=== PATIENT | female | born 1945 | race Caucasian/White ===

== ENCOUNTER → 2017-12-28 | Outpatient (CLI) | payer OTHER | LOC: RAD 10:31 | DX: R91.8 Other nonspecific abnormal finding of lung field (principal); J90 Pleural effusion, not elsewhere classified; R06.00 Dyspnea, unspecified ==

== ENCOUNTER → 2018-01-01 | Outpatient (CLI) | payer OTHER ==
--- NOTE | ~2018-01-01 | 2DMMODE ---
[facility] [place] [place] [address] 2 D/M-MODE ECHOCARDIOGRAM Name: ALICE SAAB Room #: REG CL [facility]#: [id number] Admission: 01/01/18 Attend Phys: Edgar Patel Discharge: Date of : 45 Date of Service: 01/01/18 1457 Report #: [id number] THIS REPORT FOR: //name// APPROVED REPORT Study performed: 01/01/2018 14:13:23 EXAM: Comprehensive 2D, Doppler, and color-flow Echocardiogram Patient Location: Out-Patient Status: routine BSA: 1.50 HR: 70 bpm BP: 145/77 mmHg Rhythm: NSR Other Information Study Quality: Good Indications Pulmonary hypertension. 2D Dimensions RVDd: 35.02 mm LVEF(%): 60.54 (>50%) IVSd: 7.64 (7-11mm) LVOT Diam: 17.73 (18-24mm) LVDd: 41.52 mm PWd: 7.03 (7-11mm) Ascending Ao: 37.33 (22-36mm) LVDs: 28.24 (25-40mm) Aortic Root: 33.60 mm Negro's LVEF: 60.54 % Volumes Left Atrial Volume (Systole) Single Plane 4CH: 34.88 mL Single Plane 2CH: 32.05 mL LA ESV Index: 24.00 mL/m2 Aortic Valve AoV Peak Rogelio.: 1.84 m/s AO Peak Gr.: 13.54 mmHg LVOT Max P.58 mmHg LVOT Max V: 1.46 m/s HILLARY Vmax: 1.97 cm2 AI Vmax: 4.84 m/s AI [place]: 3.29 m/s2 AI PHT: 427.61 ms [facility] [place] [address] [place] [address] 2 D/M-MODE ECHOCARDIOGRAM Name: ALICE SAAB Room #: REG [facility].#: [id number] Admission: 01/01/18 Attend Phys: Edgar Patel Discharge: Date of : 45 Date of Service: 01/01/18 1457 Report #: [id number] Mitral Valve E/A Ratio: 1.2 MV Decel. Time: 183.34 ms MV E Max Rogelio.: 1.01 m/s MV A Rogelio.: 0.82 m/s MV PHT: 53.17 ms IVRT: 83.04 ms Pulmonary Valve PV Peak Rogelio.: 1.06 m/s PV Peak Gr.: 4.47 mmHg Pulmonary Vein P Vein S: 0.58 m/s P Vein D: 0.63 m/s P Vein S/D Ratio: 0.92 Tricuspid Valve TR Peak Rogelio.: 3.02 m/s RAP Estimate: 10.00 mmHg TR Peak Gr.: 36.41 mmHg PA Pressure: 46.00 mmHg Left Ventricle The left ventricle is normal size. There is normal LV segmental wall motion. There is normal left ventricular wall thickness. Left ventricular systolic function is normal. LVEF is 55%. Right Ventricle The right ventricle is normal size. The right ventricular systolic function is normal. Atria The left atrium size is normal. The right atrium size is normal. Aortic Valve The Aortic valve is mildly sclerotic. Mild to moderate aortic regurgitation. There is no aortic valvular stenosis. Mitral Valve The mitral valve is normal in structure. Mild mitral regurgitation. Tricuspid Valve The tricuspid valve is normal in structure. Mild to moderate tricuspid regurgitation. Estimated PAP is 45mmHg. [facility] [address] [place] [address] 2 D/M-MODE ECHOCARDIOGRAM Name: ALICE SAAB Room #: REG [id number] Admission: 01/01/18 Attend Phys: Edgar Patel Discharge: Date of : 45 Date of Service: 01/01/18 1457 Report #: [id number] Pulmonic Valve The pulmonary valve is normal in structure. Mild pulmonic regurgitation. Great Vessels The aortic root is normal in size. The ascending aorta meausres at the upper limts of normal. IVC is borderline dilated and collapses <50% with inspiration. Pericardium There is no pericardial effusion. <Conclusion> The left ventricle is normal size. There is normal left ventricular wall thickness. Left ventricular systolic function is normal. The right ventricle is normal size. The left atrium size is normal. Mild to moderate aortic regurgitation. Mild mitral regurgitation. Mild to moderate tricuspid regurgitation. Estimated PAP is 45mmHg. There is no pericardial effusion. <ELECTRONICALLY SIGNED> By: Freddy Boudreaux MD 01/01/18 1457 1457 1457 Freddy Boudreaux MD /INF
== END ==
LOC: CV 13:52
DX: I08.3 Combined rheumatic disorders of mitral, aortic and tricuspid valves (principal); J44.9 Chronic obstructive pulmonary disease, unspecified

== ENCOUNTER → 2018-01-02 | Outpatient (CLI) | payer OTHER ==
[2018-01-02 12:45] LABS: HEMOGLOBIN 12.4 gm/dL (12.0-15.0); MCH 31.3 pg (26.0-34.0); MCHC 33.6 g/dL (28.0-37.0); MCV 93.1 fL (80.0-100.0); RBC 3.97 mil/uL (4.20-5.00); RDW 14.1 % (10.5-14.5); WBC 2.8 thou/uL (4.0-11.0)
[2018-01-02 12:55] LABS: CALCIUM 9.2 mg/dL (8.5-10.1); POTASSIUM 4.5 mmol/L (3.5-5.1)
[2018-01-02 13:05] LABS: INR 1.1; PROTIME 11.4 Seconds (9.3-11.4)
[2018-01-02 15:10] LABS: CLARITY CLEAR; COLOR YELLOW; TOTAL VOLUME 60 mL
[2018-01-02 15:11] LABS: BF NUCLEATED CELLS 592; BF RBC 411; SOURCE CHEST FLUID
[2018-01-02 15:20] LABS: BF MACROPHAGE 34; BF NEUTROPHILS 3
[2018-01-03 12:10] LABS: BODY FLUID ALBUMIN 2.2 g/dL (()); BODY FLUID AMYLASE 62 U/L (()); BODY FLUID GLUCOSE 97 mg/dL (()); BODY FLUID LDH 94 IU/L (()); BODY FLUID PROTEIN 3.3 g/dL (())
[2018-01-03 14:50] LABS: SOURCE CHEST
== END | disposition home or self-care (01) ==
LOC: SPEC 06:43
PROVIDERS: Internal Medicine Pulmonary Disease
DX: J90 Pleural effusion, not elsewhere classified (principal); R06.02 Shortness of breath

== ENCOUNTER → 2018-02-01 | Outpatient (CLI) | payer OTHER | LOC: RAD 09:14 | DX: J90 Pleural effusion, not elsewhere classified (principal); J98.11 Atelectasis; J98.4 Other disorders of lung ==

== ENCOUNTER → 2018-02-15 | Outpatient (CLI) | payer OTHER ==
--- NOTE | ~2018-02-15 | PATH ---
[facility] [address] [place] [address] PATHOLOGY RPT PROCEDURE Name: ALICE SAAB Room #: REG [facility].#: [id number] Admission: 02/15/18 Date of : 45 Discharge: Report #: [id number] Path Case #: [id number] Note L[facility] Accession Number: [id number] TESTS RESULT FLAG UNITS REF RANGE LAB Clinician Provided Cytology Information No. of containers..01 Other (Miscellaneous) Source: LEFT PLEURAL FLUID DIAGNOSIS: 02 LEFT PLEURAL FLUID NEGATIVE FOR MALIGNANT CELLS. MESOTHELIAL CELLS ARE PRESENT. THIS INTERPRETATION INCLUDES EVALUATION OF A CELL BLOCK. Signed out by: 02 Sheryl Car MD, Pathologist NPI- [id number] Performed by: Joseph Polk, Java Developer Consultant ([facility]) Gross description: 01 20ML, YELLOW, CLOUDY /LCS FLAG LEGEND: L-Low Normal,H-High Normal,LL-Alert Low,HH-Alert High <-Panic Low,>-Panic High,A-Abnormal,AA-Critical Abnormal Performed at: [address] [place] [address] Senthil Paz MD, [address] [address] Sheryl Car MD, Performed at: [address], [place], [place] [address] MD Senthil Paz MD Phone: [phone]
[2018-02-15 13:38] LABS: HEMATOCRIT 38.2 % (37.0-47.0); HEMOGLOBIN 12.9 gm/dL (12.0-15.0); MCH 31.4 pg (26.0-34.0); MCHC 33.8 g/dL (28.0-37.0); RBC 4.11 mil/uL (4.20-5.00); RDW 14.2 % (10.5-14.5); WBC 2.8 thou/uL (4.0-11.0)
[2018-02-15 13:45] LABS: CALCIUM 9.8 mg/dL (8.5-10.1); POTASSIUM 4.6 mmol/L (3.5-5.1)
[2018-02-15 13:51] LABS: INR 1.1; PROTIME 11.5 Seconds (9.3-11.4)
[2018-02-15 14:58] LABS: BF NUCLEATED CELLS 552; BF RBC 77
[2018-02-15 15:04] LABS: CLARITY SLIGHTLY CLOUDY; COLOR YELLOW; SOURCE LEFT CHEST; TOTAL VOLUME 58 mL
[2018-02-15 15:37] LABS: BF NEUTROPHILS 4
[2018-02-15 15:38] LABS: BF MACROPHAGE 25
[2018-02-15 15:41] LABS: SOURCE CHEST
[2018-02-16 12:09] LABS: BODY FLUID ALBUMIN 2.5 g/dL (()); BODY FLUID AMYLASE 57 U/L (()); BODY FLUID GLUCOSE 100 mg/dL (()); BODY FLUID LDH 89 IU/L (()); BODY FLUID PROTEIN 3.2 g/dL (())
== END | disposition home or self-care (01) ==
LOC: LAB 06:12 → ULTRA 16:21 → LAB 16:32
PROVIDERS: Internal Medicine Pulmonary Disease
DX: J90 Pleural effusion, not elsewhere classified (principal); Z98.890 Other specified postprocedural states

== ENCOUNTER → 2018-02-20 | Outpatient (CLI) | payer OTHER | LOC: RAD 11:59 | DX: Z09 Encounter for follow-up examination after completed treatment for conditions other than malignant neoplasm (principal); J90 Pleural effusion, not elsewhere classified ==

== ENCOUNTER → 2018-11-05 | Outpatient (CLI) | payer OTHER | LOC: CAT 10:33 | PROVIDERS: Pediatrics | DX: J90 Pleural effusion, not elsewhere classified (principal); J98.11 Atelectasis; R91.8 Other nonspecific abnormal finding of lung field; I31.3 Pericardial effusion (noninflammatory) ==

== ENCOUNTER → 2019-01-18 | Outpatient (CLI) | payer OTHER | LOC: ULTRA 14:32 | DX: R60.1 Generalized edema (principal); M79.89 Other specified soft tissue disorders ==

== ENCOUNTER → 2019-02-26 | Outpatient (CLI) | payer OTHER | LOC: RAD 14:21 | DX: J98.11 Atelectasis (principal); J91.8 Pleural effusion in other conditions classified elsewhere; R60.1 Generalized edema ==

== ENCOUNTER → 2019-09-09 | Outpatient (CLI) | payer OTHER | LOC: CAT 10:46 | DX: J90 Pleural effusion, not elsewhere classified (principal); R91.8 Other nonspecific abnormal finding of lung field; I82.409 Acute embolism and thrombosis of unspecified deep veins of unspecified lower extremity; E03.4 Atrophy of thyroid (acquired) ==

== ENCOUNTER → 2019-09-19 | Outpatient (CLI) | payer OTHER ==
[2019-09-19 13:43] LABS: ABSOLUTE NEUTROPHILS 2.7 thou/uL (1.4-8.2); BASOPHILS 0.4 % (0.0-2.0); EOSINOPHILS 0.9 % (0.0-3.0); HEMATOCRIT 38.6 % (37.0-47.0); HEMOGLOBIN 12.9 gm/dL (12.0-15.0); LYMPHOCYTES 11.9 % (24.0-44.0); MCH 31.4 pg (26.0-34.0); MCHC 33.4 g/dL (28.0-37.0); MCV 94.1 fL (80.0-100.0); MONOCYTES 7.5 % (1.0-8.0); PLATELET COUNT 128 thou/uL (150-400); POLYS 79.3 % (36.0-66.0); RBC 4.11 mil/uL (4.20-5.00); RDW 14.2 % (10.5-14.5); WBC 3.4 thou/uL (4.0-11.0)
[2019-09-19 13:54] LABS: CALCIUM 9.8 mg/dL (8.5-10.1)
[2019-09-19 13:56] LABS: APTT 27.5 Seconds (24.5-32.8); INR 1.1; PROTIME 11.5 Seconds (9.3-11.4)
[2019-09-19 15:07] LABS: CLARITY SLIGHTLY CLOUDY; COLOR YELLOW; SOURCE LEFT THORACENTESIS; TOTAL VOLUME 37 mL
[2019-09-19 15:33] LABS: BF NUCLEATED CELLS 530; BF RBC 481
[2019-09-19 16:53] LABS: BF MACROPHAGE 20; BF NEUTROPHILS 4
[2019-09-21 05:29] LABS: SOURCE PLEURAL
[2019-09-21 16:11] LABS: BODY FLUID ALBUMIN 2.3 g/dL (Not Estab.); BODY FLUID AMYLASE 70 U/L (()); BODY FLUID GLUCOSE 109 mg/dL (()); BODY FLUID LDH 83 IU/L (()); BODY FLUID PROTEIN 3.3 g/dL (())
--- NOTE | 2019-10-04 13:00 | PATH ---
[facility] [address] [place] [address] PATHOLOGY RPT PROCEDURE Name: ALICE SAAB Room #: REG [facility].#: [id number] Admission: 09/19/19 Date of : 45 Discharge: Report #: [id number] Path Case #: [id number] Note L[facility] Accession Number: [id number] TESTS RESULT FLAG UNITS REF RANGE LAB Clinician Provided Cytology Information No. of containers..01 Other (Miscellaneous) Source: LT PLEURAL FLUID DIAGNOSIS: LT PLEURAL FLUID NEGATIVE FOR MALIGNANT CELLS. MESOTHELIAL CELLS ARE PRESENT. THIS INTERPRETATION INCLUDES EVALUATION OF A CELL BLOCK. Pathologist ICD10: 02 J90 Signed out by: Sheryl Car MD, Pathologist NPI- [id number] Performed by: Viki Trujillo, Bag Loader ([facility]) Gross description: 01 10ML, YELLOW, CLEAR /LCS 09/20/2019 1657 Local FLAG LEGEND: L-Low Normal,H-High Normal,LL-Alert Low,HH-Alert High <-Panic Low,>-Panic High,A-Abnormal,AA-Critical Abnormal Performed at: 01 [facility] [address] [place] [address] [address] [place] [address] Senthil Paz MD, [address] [address] Sheryl Car MD, Specimen Comment: [id number] Specimen Comment: A duplicate report has been generated due to demographic updates. Performed at: 01 [facility] [address] [place] [address] [address], [place], [place] [id number] MD Senthil Paz MD Phone: [phone]
== END | disposition home or self-care (01) ==
LOC: ULTRA 11:48
PROVIDERS: Pediatrics
DX: J90 Pleural effusion, not elsewhere classified (principal); I77.819 Aortic ectasia, unspecified site; I10 Essential (primary) hypertension; E03.9 Hypothyroidism, unspecified; E78.00 Pure hypercholesterolemia, unspecified; Z79.899 Other long term (current) drug therapy; Z98.890 Other specified postprocedural states; Z79.01 Long term (current) use of anticoagulants

== ENCOUNTER 2020-01-30 06:15 | Inpatient (IN) | payer OTHER ==
[2020-01-20 10:25] LABS: HEMATOCRIT 36.2 % (37.0-47.0); HEMOGLOBIN 12.4 gm/dL (12.0-15.0); MCHC 34.3 g/dL (28.0-37.0); MCV 93.3 fL (80.0-100.0); PLATELET COUNT 105 thou/uL (150-400); RBC 3.88 mil/uL (4.20-5.00); RDW 14.1 % (10.5-14.5); URINE BILIRUBIN NEGATIVE (Negative); URINE BLOOD 1+ (Negative); URINE CLARITY CLEAR; URINE COLOR YELLOW; URINE GLUCOSE-RANDOM* NEGATIVE (Negative); URINE KETONES NEGATIVE (Negative); URINE LEUKOCYTES-REFLEX NEGATIVE (Negative); URINE NITRITE-REFLEX NEGATIVE (Negative); URINE PROTEIN (DIPSTICK) NEGATIVE (Negative); URINE SPECIFIC GRAVITY 1.025 (1.005-1.035); URINE UROBILINOGEN 0.2 E.U./dl (0.2-1.0); WBC 2.8 thou/uL (4.0-11.0)
[2020-01-20 10:39] LABS: ALBUMIN 3.5 g/dL (3.4-5.0); CALCIUM 8.8 mg/dL (8.5-10.1); CREATININE 1.1 mg/dL (0.6-1.0); POTASSIUM 3.9 mmol/L (3.5-5.1); TOTAL BILIRUBIN 0.6 mg/dL (<0.1-1.0); TOTAL PROTEIN 6.5 g/dL (6.4-8.2)
[2020-01-20 10:40] LABS: APTT 28.2 Seconds (24.5-32.8); INR 1.1; PROTIME 11.4 Seconds (9.3-11.4)
[2020-01-20 10:42] LABS: BACTERIA-REFLEX 1-9 Few /HPF (None Seen); CASTS None Seen /LPF (None Seen); CRYSTALS None Seen /LPF (None Seen); SQUAMOUS 0-3 Few /LPF (0-3); URINE RBC 0-2 Rare /HPF (0-2); URINE WBC-REFLEX 0-5 Rare /HPF (0-5)
[2020-01-20 10:53] LABS: ABSOLUTE NEUTROPHILS 2.1 thou/uL (1.4-8.2); ANISOCYTOSIS SLIGHT
--- NOTE | 2020-01-20 14:59 | EKG ---
[facility] [place] [address] ELECTROCARDIOGRAM REPORT Name: ALICE SAAB Room #: PRE IN M.R.#: [id number] Admission: Attend Phys: Puneet Johnson MD Discharge: Date of : 45 Report #: [id number] THIS REPORT FOR: cc: Jc Duran MD, Stanley P. MD Couchonnal, Luis F. MD ~ THIS REPORT FOR: //name// [facility] Test Date: 2020-01-20 Test Time: 10:20:49 Pat Name: ALICE SAAB Department: Room: Gender: Regulatory Compliance Director: [facility] : 1945 Requested By: Puneet Johnson Order Number: [id number] MD: Tomás Luna Measurements Intervals [place] Rate: 65 P: 38 DC: 159 QRS: 46 QRSD: 87 T: 44 QT: 445 QTc: 463 Interpretive Statements Sinus rhythm Low voltage, precordial leads Abnormal R-wave progression, early transition No previous ECG available for comparison Electronically Signed On 01-20-2020 14:57:53 CDT by Tomás Luna [email or web address] <ELECTRONICALLY SIGNED> By: Tomás Luna MD 01/20/20 1457 1020 1020 Tomás Luna MD /TOMASA
[~2020-01-30] VITALS: Ht 157.5 cm; Wt 57.2 kg
[~2020-01-30 06:15] MED LIST: ATORVASTATIN CA40 MG PO; FISH OIL 1,0001 EAC9 PO; LASIX 40 MG TAB40 MG PO; POTASSIUM99 M1 PO; SYNTHROID50 MCG PO; VITAMIN D31250 MC1 PO
[2020-01-30 07:45] VITALS: BP 129/69
[2020-01-30 14:18] VITALS: BP 108/56
--- NOTE | 2020-01-30 15:27 | NUR ---
1419-RECEIVED PT FROM PACU.--VW 1520-PT EXTREMELY HAVASUPAI.ANSWERS EVERY ? W A HUH? FOLLOWS 1&2 STEP COMMANDS.FENTANYL LOSS PREVENTION COORDINATOR STARTED,ATTEMPTED TO EXPLAIN TO PT HOW TO USE,UNSURE IF SHE COMPREHENDED.DRIFTING INTO SLEEP WHEN LEFT ALONE.--VW
[2020-01-30 16:00] VITALS: BP 122/47
[2020-01-31] VITALS (26 sets, daily range): BP systolic 71–141; BP diastolic 32–63
[2020-01-31 04:54] LABS: HEMATOCRIT 28.9 % (37.0-47.0); HEMOGLOBIN 9.8 gm/dL (12.0-15.0); MCH 31.7 pg (26.0-34.0); MCV 93.1 fL (80.0-100.0); RBC 3.11 mil/uL (4.20-5.00); RDW 13.6 % (10.5-14.5); WBC 4.3 thou/uL (4.0-11.0)
[2020-01-31 05:03] LABS: CALCIUM 7.9 mg/dL (8.5-10.1); CREATININE 0.9 mg/dL (0.6-1.0); POTASSIUM 3.6 mmol/L (3.5-5.1)
--- NOTE | 2020-01-31 06:00 | NUR ---
PT AWAKE AND ALERT POST VAT YESTERDAY. LEFT PLEURAL TUBE HAD 200 CC SEROSAMGIOUS DRAINAGE. UO ADEQ. REMAINS IN SINUS PONCE 48 TO 60. FENTANYL ANALYTICS ANALYST USES IS UP TO 1000 UP TO CARDIAC CHAIR. RONNY WELL. RIGHT RADIAL ART LINE INTACT. PROGRESSING TOWARD GOALS. WILL CONT TO MONITOR.
--- NOTE | 2020-01-31 10:44 | NUR ---
chart review. report from bedside nurse provided. unable to visit with mary meredith at this time. per chart pt lives with brother betsy. independent prior to hospital. cm called brother betsy, no answer [phone], left message with requested call back. pt still requires chest tube. will cont following as needed for dc needs.
--- NOTE | 2020-01-31 15:00 | NUR ---
ambulated in [place] around the desk twice with physical therapy and RN. well tolerated.
--- NOTE | 2020-01-31 16:52 | NUR ---
SW received voice message from pt's brother, Austin. SW returned call. Introduced role of SW. Pt's brother states that pt normally lives at home with him. Prior to admission pt was independent with ADLs and does not use any DME. Pt's brother is unsure if pt has used HH services in the past. Pt has been to [facility] for a short-term rehab stay. Pt's PCP is Dr. Jc Duran. Therapy ordered to evaluate pt for recommendations for discharge needs. Pt's brother would like to be notified when pt is moved out of the ICU, so he can call her in her room. No weekend discharge planned. SW is following to assist as needed with discharge planning.
--- NOTE | 2020-01-31 17:08 | PATH ---
[facility] [address] [place] [address] PATHOLOGY RPT PROCEDURE Name: ALICE SAAB Room #: 251-P ADM IN M.R.#: [id number] Admission: 01/30/20 Date of : 45 Discharge: Report #: [id number] Path Case #: [id number] [facility] Accession Number: [id number] . 01 Material submitted: . pleura - PLEURAL PEEL . 01 Clinical history: . Left pleural effusion . 02 Diagnosis: Pleural peel, decortication: - Pleural tissue lined by fibrin, moderate acute and chronic inflammation as well as congestion. - Reactive mesothelial proliferation. - Negative for malignancy. (IUV/db; 01/31/2020) LBQ 01/31/2020 1436 Local . 02 Electronically signed: . Sheryl Car MD, Pathologist NPI- [id number] . 01 Gross description: . The specimen is received in formalin, labeled "Alice Saab, pleural peel". Received are multiple segments of pink-sterling, glistening to shaggy tissue measuring 6.6 x 5.5 x 0.9 cm in aggregate dimensions. The specimen is submitted representatively in cassette A1. (CAA; 01/30/2020) QAC/QAC 01/30/2020 1707 Local . 02 Pathologist provided ICD-10: R09.1 . 02 CPT . 234068 Specimen Comment: A courtesy copy of this report has been sent to [phone] Specimen Comment: [phone] Specimen Comment: Report sent to / DR HARRIS Performed at: [address] [id number] MD Senthil Paz MD Phone: [phone] Performed at: [address] [id number] [address] [address] PATHOLOGY RPT PROCEDURE Name: ALICE SAAB Room #: 251-P [facility] IN M.R.#: [id number] Admission: 01/30/20 Date of : 45 Discharge: Report #: [id number] Path Case #: [id number] MD Sheryl Car MD Phone: [phone]
--- NOTE | 2020-01-31 19:30 | NUR ---
PT PROGRESSING. UP IN CHAIR FOR SEVERAL HOURS, MARGARET BAIRES'Gina. AMBULATED IN RECINOS, WELL TOLERATED. REMAINED UP IN CHAIR WITH POSITION CHANGED FOR HER COMFORT. CONSUMED SMALL AMOUNT OF DINNER. IMMEDIATELY DEVELOPED FREQUENT HICCUPS. AMBULATED IN RECINOS AROUND DESK THREE TIMES, WELL TOLERATED. BACK TO BED, HICCUPS RESOLVED. URINE OUTPUT REMAINS MARGINAL ALL SHIFT. NS CONTINUING TO INFUSE. AIR LEAK REMAINS IN PLEURAL CHEST TUBE WITH CHEST TUBES, DRESSING AND ALL CONNECTIONS INTACT.
[2020-02-01] VITALS (34 sets, daily range): BP systolic 67–101; BP diastolic 33–59
--- NOTE | 2020-02-01 07:59 | NUR ---
Pt progressing slowly toward goals. Some problems with hypotension (SBP < 90 and/or MAP < 60) which were mostly corrected by IVF overnight. Noted that BP seemed to drop after pt pushed INTERLIBRARY LOAN SPECIALIST button and took an hour or so to come back up. Urine output 20-30 cc/hr at beginning of shift now up to 40-50 cc/hr. Total urine output for shift 450 cc. No nausea overnight, taking clear liquids without problem. Left chest tube x2 to -20 cmH2O. Moderate air leak has decreased overnight, but small air leak still present. No crepitus or new drainage from chest tube sites. Total output from plural tubes 140 cc sero-sanguinous drainage for this shift.
[2020-02-01 12:11] LABS: HEMATOCRIT 26.7 % (37.0-47.0); HEMOGLOBIN 9.2 gm/dL (12.0-15.0); MCH 32.3 pg (26.0-34.0); MCHC 34.4 g/dL (28.0-37.0); RBC 2.84 mil/uL (4.20-5.00); WBC 4.8 thou/uL (4.0-11.0)
[2020-02-01 12:21] LABS: POTASSIUM 3.7 mmol/L (3.5-5.1)
--- NOTE | 2020-02-01 19:30 | NUR ---
SLOWLY PROGRESSING, UP IN RECLINING CHAIR DURING SHIFT WITH RECLINER REPOSITIONED. AMBULATED WITH RN AND PCT X1, AMBULATED WITH 2 FLIGHT ENGINEER PERFORMANCE QUALIFIED X1, THEN AMBULATED WITH PHYSICAL THERAPY X 1. ALL WALKS AROUND THE HALLS, NURSING DESKS WERE WELL TOLERATED. PT BACK TO BED SURROUNDING SHIFT CHANGE. WHEN PT UP IN CHAIR DESPITE RECLINER IN VARING POSITIONS WHEN SHE DOZES OFF, THEN HER SBP IS LOW, DOWN INTO THE 70'S. SLIGHT IMPROVEMENT IN AFTERNOON WHEN FOOD SERVICE TRAY ATTENDANT FENTANYL DC'D. ROOM AIR, PULLS 500-750 ON INCENTIVE SPIROMETER. PT HAD A STRONG COUGH AFTER AMBULATING SEVERAL TIMES. TOLERATING PO, HENDRIX DC'D 1230 TO 1300, HAS NOT VOIDED AT THIS TIME. UPDATED ONCOMING RN.
[2020-02-02] VITALS (24 sets, daily range): BP systolic 74–123; BP diastolic 44–67
--- NOTE | 2020-02-02 05:26 | NUR ---
ASSUMED PT CARE AT 1900. PT IS ALERT AND ORIENTED. NO SIGN OF DISTRESS NOTED IN PT. FALL PRECAUTION IN PLACE. CALL LIGHT WITHIN REACH. PT VERBALIZES PAIN TO INCISION SITE. CHEST TUBE IN PLACE. ASSESSMENT COMPLETED AND DOCUMENTED. PAIN IS MANAGED. SCHEDULED MEDS ADMINISTERED TO PT. TOLERATED PO INTAKE. BLOOD PRESSURE IS LOW. CONTINUE TO MONITOR. DENIES ANY FURTHER NEEDS AT THIS TIME.
--- NOTE | 2020-02-02 08:14 | O ---
[facility] [place] [place] [address] OPERATIVE REPORT Name: ALICE SAAB Room #: 251-P ADM IN M.R.#: [id number] Admission: 01/30/20 Attend Phys: Puneet Johnson MD Discharge: Date of : 45 Report #: [id number] THIS REPORT FOR: cc: Jc Duran MD, Stanley P. MD Forman,Puneet Pace MD ~ CC: Puneet Duran DATE OF SERVICE: 01/30/2020 PREOPERATIVE DIAGNOSIS: Trapped lung, clinically left. POSTOPERATIVE DIAGNOSIS: Trapped lung, clinically left. OPERATION: Bronchoscopy, left video-assisted thoracoscopy, left thoracotomy with decortication. SURGEON: Puneet Johnson MD WRITER PRODUCER: MICHELLE Barrera ANESTHESIA: General. INDICATIONS: The patient is a 74-year-old with chronic cough and chronic left pleural effusion. The patient has had several thoracenteses always with benign cytology, persistent symptoms and abnormal x-ray led to the indications for this. FINDINGS AND TECHNIQUE: After general anesthesia was established, flexible diagnostic bronchoscopy was performed. No specific endobronchial lesions were noted, however, there were chronic changes in the air flow dividers more so on the left than the right of blunting and graying of the mucosa. A double lumen endotracheal tube was placed and its position ascertained under bronchoscopic guidance. The patient was positioned with left side up, exposure was obtained through video-assisted thoracoscopy port, approximately 600 mL of pleural fluid was aspirated and we observed the left lung to be chronically shrunken and un-expandable, this was true of the lingula as well, but the remainder of the upper lobe appeared relatively normal. With the thought that this would be difficult or impossible to perform satisfactorily with a video-assisted approach, exposure was obtained by posterolateral thoracotomy. Chest was entered through the fifth interspace [facility] [address] [place] [address] OPERATIVE REPORT Name: ALICE SAAB Marry Room #: 251-P [facility] IN .R.#: [id number] Admission: 01/30/20 Attend Phys: Puneet Johnson MD Discharge: Date of : 45 Report #: [id number] using a nerve sparing, rib sparing approach. Decortication was performed by dividing the fibrous envelope covering the left lung. This was thickest over the lingula and the left lower lobe. Careful blunt and sharp dissection was used to try to reexpand as much lung as we could without tearing visceral pleura. This was a tedious dissection, but when we reached what we thought was the point of diminishing returns, chest was irrigated and 2 chest tubes were brought through separate stab wounds and then the chest was closed to maintain the nerve sparing, rib sparing approach. The patient was taken to the recovery area in good condition having tolerated the procedure well. All counts reported as correct. <ELECTRONICALLY SIGNED> By: Puneet Johnson MD 02/02/20 0814 1255 MD randy Lowry
--- NOTE | 2020-02-02 11:35 | EKG ---
[facility] [address] [place] [address] ELECTROCARDIOGRAM REPORT Name: ALICE SAAB Room #: 251- ADM IN M.R.#: [id number] Admission: 01/30/20 Attend Phys: Puneet Johnson MD Discharge: Date of : 45 Report #: [id number] THIS REPORT FOR: cc: Jc Duran MD, Stanley P. MD Couchonnal, Luis F. MD ~ THIS REPORT FOR: //name// [facility] Test Date: 2020-02-02 Test Time: 08:37:17 Pat Name: ALICE SAAB Department: Room: [facility] Gender: F Car Greaser: MARIBELL : 1945 Requested By: Puneet Johnson Order Number: [id number] MD: Tomás Luna Measurements Intervals [place] Rate: 93 P: DC: QRS: 36 QRSD: 78 T: 5 QT: 379 QTc: 472 Interpretive Statements Atrial fibrillation Borderline T abnormalities, inferior leads Compared to ECG 01/20/2020 10:20:49 T-wave abnormality now present Sinus rhythm no longer present Electronically Signed On 02-02-2020 11:33:22 CDT by Tomás Luna [email or web address] <ELECTRONICALLY SIGNED> By: Tomás Luna MD 02/02/20 1133 0837 0837 Tomás Luna MD /EPI
--- NOTE | 2020-02-02 19:40 | NUR ---
AMBULATED A COUPLE OF TIMES AROUND THE ICU (AVOIDED COVID AREA) WHILE ON PRACTICE COORDINATOR. AFIB RATE CONTROLLED, SA02 REMAINED GREATER THAN 92%, MODERATE NONPRODUCTIVE COUGH. VOIDED ON BSC, BACK TO BED. OLD SEROSANGUINOUS/BLOODY SATURATED GUAZE IN LOWER PORTION OF L PCT DRESSING REMOVED. TRANSPARENT DRESSING REAPPLIED. ALL WELL TOLERATED. PCT REMAINS TO WATER SEAL SINCE @ 1730. NO AIR LEAK. REPORT TO JEZ PENA.
[2020-02-03] VITALS (12 sets, daily range): BP systolic 83–107; BP diastolic 54–69
--- NOTE | 2020-02-03 06:36 | NUR ---
A/O X 4.HARD OF HEARING.DENIES PAIN AND SOB.WALKED IN THE HALLWAYS AT THE BEGINNING OF THIS SHIFT WITH THE DAY RN.VOIDED USES THE BEDSIDE COMMODE.SYSTOLIC BP REMAINS TO BE BELOW 100 THIS SHIFT.CARDIZEM GTT WAS TURNED OFF SINCE AROUND 2100.FELT NAUSEAOUS THIS AM.ZOFRAN GIVEN.CHEST TUBE INTACT.MONITOR SHOWS AFIB.POC CONTINUED.
--- NOTE | 2020-02-03 08:38 | NUR ---
ASSUMED CARE OF PT AT SHIFT CHANGE, [place], C/O PAIN OF BED AND TASTE OF FOOD, IS A&0X4, NORMALLY AMB INDEPENDENTLY AT HOME, HAS STAIRS. SEE SEPARATE INTERVENTIONS, REPORTS OF SBP AROUND 80S SO CARDIZEM WAS STOPPED PRIOR SHIFT, B/PS NOW AT 90S/60S, AMIODARONE PO ADM. ON 2L; DOES NOT WEAR 02 AT HOME.DROPPED DOWN TO 1L, WILL MONITOR AND REMOVE, APPLICABLE. ENCOURAGED PT TO USE CALL LIGHT FOR NEEDS. TALKS A LOT ABOUT HER CATS. CHEST TUBE NOTED ORIGIN LEFT UPPER LAT CHEST, SEROSANG FLUID. NOTED YESTERDAY A NOTE FOR TRANSFER TO CCU WAS WRITTEN FOR YESTERDAY AFTERNOON
--- NOTE | 2020-02-03 16:13 | NUR ---
ELLE reviewed chart and spoke with nursing. Pt is s/p left thoracotomy. Pt may benefit from HH at time of discharge. Pt was transferred from ICU to CCU earlier today. SW attempted to reach pt via phone. No answer. ELLE spoke with pt's brother, Austin, via phone to provide update and discuss HH services. Confirmed pt's home address and phone number. ELLE discussed options for HH agencies. No preference of HH provider. ELLE faxed HH referral to [facility] for review. Notified HH liaison of new referral. ELLE is following to assist as needed with discharge planning.
--- NOTE | 2020-02-03 20:03 | NUR ---
ASSUMMED PT CARE AT APPROXIMATELY 1415. PT A&O X4. ASSESSMENT CHARTED. FALL PRECAUTIONS IN PLACE. PT DENIES HAVING CHEST PAIN. PT DENIES HAVING SOB. PT STATED SHE HAD ACUTE PAIN 2/10 ON L SIDE. ASKED PT IF SHE WANTED ANALGESICS. PT STATED SHE DID NOT WANT ANALGESICS. CARDIZEM DRIP INFUSING. HR STABLE. BLOOD PRESSURE STABLE. VITAL SIGNS STABLE. PT COMFORTABLE IN BED. PT DENIED HAIVNG FURTHER CONCERNS. L SIDED DRESSING FROM CHEST TUBE HAD MODERATE SEROUS DRAINAGE. L SIDED DRESSING INTACT. PICCO DRESSING C/D/I C GREEN LIGHT BLINKING.
[2020-02-04 00:45] VITALS: BP 82/53
[2020-02-04 04:45] VITALS: BP 99/59
[2020-02-04 08:00] VITALS: BP 94/58
--- NOTE | 2020-02-04 08:15 | NUR ---
ASSESSMENTS CHARTED, MEDS CHARTED GIVEN. PATIENT TRANSFERED FROM ICU EARLIER DURING THE DAY, RESTING IN BED DURING SHIFT. PATIENTS RT WRIST IV INFILTRATED, NEW IV PLACED IN LEFT FOREARM. RECEIVING CARDIZEM DRIP DURING SHIFT. PATIENT REPOSITIONED FREQUENTLY TO MAINTAIN COMFORT. CHEST TUBE SITES DRAINING THROUGH 2 DRESSING CHANGES DURING SHIFT. LEFT BACK SANDRA DRESSING MAINTAINED DURING SHIFT. FALL PRECAUTIONS IN PLACE DURING SHIFT.
[2020-02-04 12:00] VITALS: BP 84/51
[2020-02-04] MEDS ORDERED: ELIQUIS5 MG PO (14:29)
[2020-02-04 16:00] VITALS: BP 97/56
--- NOTE | 2020-02-04 18:27 | NUR ---
ASSUMED CARE APPROX 0700. PT ALERT AND ORIENTED X4. ASSESSMENTS CHARTED AND VSS. NO SIGNS OF RESPIRATORY DISTRESS OR DYSPNEA THIS SHIFT. PT ON ROOM AIR AND TOLERATING WELL. AFIB ON THE TELE MONITOR. CARDIZEM D/C'D THIS AM PER ORDERS. PT'S HR HAS BEEN IN THE 70-80'S. SANDRA DRESSING C/D/I AND LIGHT IS GREEN. PT DID WELL WITH THE INCENTIVE SPIROMETER THIS SHIFT. STILL WITH A PRODUCTIVE COUGH WITH BLOOD-TINGED SPUTUM. PT STABLE AT THIS TIME. WILL CONTINUE TO MONITOR.
[2020-02-04 20:15] VITALS: BP 114/83
[2020-02-05 04:45] VITALS: BP 118/68
[2020-02-05] MEDS ORDERED: METOPROLOL SUCC50 MG PO (07:24)
[2020-02-05 07:35] VITALS: BP 129/71
[2020-02-05 08:40] LABS: HEMOGLOBIN 10.5 gm/dL (12.0-15.0); MCH 31.8 pg (26.0-34.0); MCHC 32.9 g/dL (28.0-37.0); MCV 96.9 fL (80.0-100.0); RBC 3.3 mil/uL (4.20-5.00); RDW 14.9 % (10.5-14.5)
--- NOTE | 2020-02-05 09:11 | NUR ---
[facility] [place] accepting [place] [facility] following.
[2020-02-05 12:35] VITALS: BP 99/63
[2020-02-05] MEDS ORDERED: PACERONE 200 M200 M1 PO (12:35)
--- NOTE | 2020-02-05 15:22 | 2DMMODE ---
[facility] [place] [address] 2 D/M-MODE ECHOCARDIOGRAM Name: ALICE SAAB Room #: 218-P ADM IN M.R.#: [id number] Admission: 01/30/20 Attend Phys: Puneet Johnson MD Discharge: Date of : 45 Report #: [id number] THIS REPORT FOR: cc: Jc Duran MD, Stanley P. MD Park, Jin S. MD ~ APPROVED REPORT Study performed: 02/05/2020 13:56:57 EXAM: Comprehensive 2D, Doppler, and color-flow Echocardiogram Patient Location: Bedside Room #: 218 Status: routine BSA: 1.67 HR: 65 bpm BP: 99/63 mmHg Rhythm: NSR Other Information Study Quality: Technically Difficult Technically limited study due to lung disease, post operative dressings, inability to position patient. Indications Atrial Fibrillation 2D Dimensions IVC: 21.00 mm Aortic Valve AoV Peak Rogelio.: 1.65 m/s AO Peak Gr.: 10.93 mmHg LVOT Max P.86 mmHg LVOT Max V: 1.31 m/s AI Vmax: 3.86 m/s AI [place]: 1.76 m/s2 AI PHT: 657.19 ms Mitral Valve E/A Ratio: 1.2 MV Decel. Time: 221.68 ms MV E Max Rogelio.: 1.00 m/s MV A Rogelio.: 0.82 m/s MV PHT: 64.29 ms [facility] [address] [place] [address] 2 D/M-MODE ECHOCARDIOGRAM Name: ALICE SAAB Room #: 218-P ADM IN M.R.#: [id number] Admission: 01/30/20 Attend Phys: Puneet Johnson MD Discharge: Date of : 45 Report #: [id number] IVRT: 78.43 ms Pulmonary Vein P Vein S: 0.36 m/s P Vein A: 0.17 m/s P Vein D: 0.29 m/s P Vein A Dur.: 87.7 msec P Vein S/D Ratio: 1.24 Tricuspid Valve TR Peak Rogelio.: 2.43 m/s TR Peak Gr.: 23.70 mmHg PA Pressure: 34.00 mmHg Left Ventricle The left ventricle is normal size. There is normal LV segmental wall motion. There is normal left ventricular wall thickness. The left ventricular systolic function is normal. The left ventricular ejection fraction is within the normal range. LVEF is 55-60%. Right Ventricle Right ventricle is not well visualized. Right ventricle is grossly normal in size. Atria The left atrium size is normal. The right atrium size is normal. Aortic Valve The aortic valve is normal in structure. The Aortic valve is sclerotic. Mild aortic regurgitation. There is no aortic valvular stenosis. Mitral Valve The mitral valve is normal in structure. Mild mitral regurgitation. No evidence of mitral valve stenosis. Tricuspid Valve The tricuspid valve is normal in structure. There is mild tricuspid regurgitation. Estimated PAP 34 mmHg. Pulmonic Valve Pulmonic valve is not well visualized. There is no pulmonic valvular regurgitation. Great Vessels The aortic root is normal in size. IVC is dilated and collapses <50% with inspiration. [facility] [address] [place] [address] 2 D/M-MODE ECHOCARDIOGRAM Name: ALICE SAAB Room #: 218-P [facility] IN .R.#: [id number] Admission: 01/30/20 Attend Phys: Puneet Johnson MD Discharge: Date of : 45 Report #: [id number] Pericardium There is no pericardial effusion. <Conclusion> The left ventricle is normal size. There is normal left ventricular wall thickness. The left ventricular systolic function is normal. Right ventricle is not well visualized. The left atrium size is normal. Mild aortic regurgitation. Mild mitral regurgitation. There is mild tricuspid regurgitation. Estimated PAP 34 mmHg. <ELECTRONICALLY SIGNED> By: Freddy Boudreaux MD 02/05/20 1520 [id number] 152 Freddy Boudreaux MD /INF
[2020-02-05 15:45] LABS: CALCIUM 7.8 mg/dL (8.5-10.1); POTASSIUM 4.4 mmol/L (3.5-5.1)
[2020-02-05 17:03] VITALS: BP 104/63
--- NOTE | 2020-02-05 18:15 | NUR ---
ASSUMED CARE APPROX 0700. ALERT AND ORIENTED X4. ASSESSMENTS CHARTED AND VSS. PT WITH INCREASED COUGH AND SOA THIS AM. DR. CORTES NOTIFIED AND CXR AND LABS ORDERED. DR. BANSAL CONSULTED. PT REPORTED IMPROVED BREATHING AFTER BREATHING TX. PT ON 2LNC WITH NO SIGNS OF RESPIRATORY DISTRESS NOTED. WILL CONTINUE TO MONITOR.
[2020-02-05 20:34] VITALS: BP 110/52
[2020-02-05 23:43] VITALS: BP 95/52
[2020-02-06] VITALS (7 sets, daily range): BP systolic 88–118; BP diastolic 53–66
--- NOTE | 2020-02-06 06:07 | NUR ---
ASSUMED CARE OF PATIENT AT 1900. [employer] DRESSING TO CHEST REMAINS INTACT. PATIENT DENIES ANY SHORTNESS OF BREATH AND OXYGEN SATURATION MAINTAINED IN UPPER 90s ON ROOM AIR. PATIENT DID COMPLAIN OF LEFT SIDED PAIN EXACERBATED BY COUGHING. ENCOURAGED USE OF IS WHICH PATIENT IS COMPLIANT WITH. ALSO ADMINISTERED PRN TYLENOL THAT PATIENT REPORTED IS EFFECTIVE. PATIENT APPEARS TO BE PROGRESSING TOWARDS GOALS.
--- NOTE | 2020-02-06 14:32 | NUR ---
Update given to [facility]. They can provide RN and therapy services at dc. Pt weaning off o2. No dc today. Awaiting CTS imput on dc timeframe. Will follow.
--- NOTE | 2020-02-06 19:31 | NUR ---
ASSUMED CARE OF PATIENT AT 0700. ASSESSMENT COMPLETED. PATIENT STATES THAT HER SHORTNESS OF AIR HAS IMPROVED FROM YESTERDAY. C/O LEFT SIDED BACK PAIN FROM THORACOTOMY SITE, IRRITATED WITH MOVEMENT AND COUGHING. PATIENT TOOK A ONE TIME DOSE OF TYLENOL AND REFUSED TO TAKE ANY MORE. PATIENT COUGHING UP SMALL AMOUNTS OF THICK BLOOD TINGED SPUTUM. SR ON TELE WITH HE IN 60-70'S. PATIENT AMBULATING THE HALLS WITH STAFF AND STEADY. URGED [employer] SUPERVISOR TO WALK WITH PATIENT ALSO. PATIENT TO CONTINUE WITH POC.
[2020-02-07 00:24] VITALS: BP 101/58
[2020-02-07 04:43] VITALS: BP 131/71
--- NOTE | 2020-02-07 05:14 | NUR ---
Up in the recliner chair at beginning of shift. Titrated O2 down to 1L at HS then now in RA with O2 sat of 98%. Encouraged use of IS ,able to reach 750 ml. Ambulated around hallway and tolerated well. Denies any pain. Slept fair during the night except she stated she had to get up and go to the bathroom. Left post incision with SANDRA dsg , CDI. Left CT site with ABD in place. Making progress towards care plan goals.
[2020-02-07 09:01] VITALS: BP 116/62
[2020-02-07 12:19] VITALS: BP 106/56
[2020-02-07] MEDS ORDERED: PROAIR HFA8.5 GM INH (14:45)
--- NOTE | 2020-02-07 15:31 | NUR ---
PT DISCHARGING TODAY TO HOME WITH [facility] FAXED DC ORDERS/SUMMARY RECEIVED CONFIRMATIONN AND SPOKE WITH LAYNE IN INTAKS SHE REEIVED ORDERS AND WILL NOTIFY PT TIME OF VISITS.
--- NOTE | 2020-02-07 15:33 | NUR ---
ASSESSMENT CHARTED. PT ALERT AND ORIENTED. VSS. DENIED HAVING PAIN OR DISCOMFORT. AMBULATED X2 THIS SHIFT. ORDERS GIVEN TO DISCHARGE PT TO HOME. DISCHARGE INSRUCTIONS GIVEN TO PT. PT VERBERLISED UNDERSTANDING.
== END 2020-02-07 15:33 | disposition home health service (06) | DRG 164 ==
LOC: ICU 06:15 → TBA 06:15 → PRE 09:46 → ICU 14:39 → 2N 02-03 14:55
PROVIDERS: Physician Assistant; ADMIT Surgery Vascular Surgery
PROC: 0BJ08ZZ Inspection of Tracheobronchial Tree, Via Natural or Artificial Opening Endoscopic (ICD-10-PCS; principal; 2020-01-30)
PROC: 0BNL4ZZ Release Left Lung, Percutaneous Endoscopic Approach (ICD-10-PCS; principal; 2020-01-30)
PROC: 0W9B40Z Drainage of Left Pleural Cavity with Drainage Device, Percutaneous Endoscopic Approach (ICD-10-PCS; principal; 2020-01-30)
DX: J90 Pleural effusion, not elsewhere classified (principal); I48.19 Other persistent atrial fibrillation; N18.9 Chronic kidney disease, unspecified; D69.6 Thrombocytopenia, unspecified; R91.1 Solitary pulmonary nodule; E78.00 Pure hypercholesterolemia, unspecified; D64.9 Anemia, unspecified; R06.89 Other abnormalities of breathing; Z86.718 Personal history of other venous thrombosis and embolism; Z79.01 Long term (current) use of anticoagulants; Z99.81 Dependence on supplemental oxygen; Z86.711 Personal history of pulmonary embolism; Z79.891 Long term (current) use of opiate analgesic; Z79.899 Other long term (current) drug therapy; J94.1 Fibrothorax
CPT/HCPCS: 10078; 10081; 10203; 47405; 50010; 50101; 50386; 50417; 50455; 50497; 50607; 50649; 51301; 52265; 54118; 56524; 56525; 56526; 56527; 56528; 57116; 62110; 62900; 65040; 65105; 65130; 70005

== ENCOUNTER → 2020-02-18 | Outpatient (CLI) | payer OTHER ==
[~2020-02-18] MED LIST changes: +ELIQUIS5 MG PO; +METOPROLOL SUCC50 MG PO; +PACERONE 200 M200 M1 PO; +PROAIR HFA8.5 GM INH
== END ==
LOC: SJCVC 13:31
PROVIDERS: ATTEND Internal Medicine Cardiovascular Disease
DX: I48.0 Paroxysmal atrial fibrillation (principal); N18.9 Chronic kidney disease, unspecified; Z79.899 Other long term (current) drug therapy

== ENCOUNTER → 2020-03-09 | Outpatient (CLI) | payer OTHER | LOC: RAD 13:23 | PROVIDERS: ATTEND Pediatrics | DX: J90 Pleural effusion, not elsewhere classified (principal); J98.4 Other disorders of lung; J98.11 Atelectasis ==

== ENCOUNTER → 2020-05-26 | Outpatient (CLI) | payer OTHER | LOC: SJCVCIMAG 09:46 | PROVIDERS: ATTEND Internal Medicine Cardiovascular Disease | DX: I48.0 Paroxysmal atrial fibrillation (principal); R06.09 Other forms of dyspnea; N18.9 Chronic kidney disease, unspecified; E78.5 Hyperlipidemia, unspecified; Z86.718 Personal history of other venous thrombosis and embolism ==

== ENCOUNTER → 2020-05-28 | Outpatient (CLI) | payer OTHER | LOC: SJCVC 12:55 | PROVIDERS: ATTEND Internal Medicine Cardiovascular Disease | DX: I48.0 Paroxysmal atrial fibrillation (principal); E78.00 Pure hypercholesterolemia, unspecified; E78.5 Hyperlipidemia, unspecified; N18.3 Chronic kidney disease, stage 3 (moderate); Z79.899 Other long term (current) drug therapy ==

== ENCOUNTER → 2020-07-15 | Outpatient (CLI) | payer OTHER | LOC: CAT 11:09 | PROVIDERS: ATTEND Pediatrics | DX: J90 Pleural effusion, not elsewhere classified (principal); J98.4 Other disorders of lung ==

== ENCOUNTER → 2021-05-27 | Outpatient (CLI) | payer OTHER | LOC: SJCVC 14:03 | PROVIDERS: ATTEND Internal Medicine Cardiovascular Disease | DX: R94.31 Abnormal electrocardiogram [ECG] [EKG] (principal); I49.8 Other specified cardiac arrhythmias; I48.0 Paroxysmal atrial fibrillation; N18.30 Chronic kidney disease, stage 3 unspecified; Z86.718 Personal history of other venous thrombosis and embolism; Z79.82 Long term (current) use of aspirin; Z79.899 Other long term (current) drug therapy ==

== ENCOUNTER → 2021-08-10 | Outpatient (CLI) | payer OTHER | LOC: CAT 12:15 | PROVIDERS: ATTEND Pediatrics | DX: J90 Pleural effusion, not elsewhere classified (principal); R91.8 Other nonspecific abnormal finding of lung field; J98.19 Other pulmonary collapse; R05.9 Cough, unspecified; R91.1 Solitary pulmonary nodule ==